=== PATIENT | female | born 1960 | race Caucasian/White ===

== ENCOUNTER → 2020-03-31 | Outpatient (CLI) | payer OTHER | LOC: LAB 13:31 | PROVIDERS: ATTEND Internal Medicine Gastroenterology | DX: Z01.812 Encounter for preprocedural laboratory examination (principal); K21.9 Gastro-esophageal reflux disease without esophagitis; Z20.828 Contact with and (suspected) exposure to other viral communicable diseases | CPT/HCPCS: U0003 ==

== ENCOUNTER → 2020-04-03 | Day surgery (SDC) | payer OTHER ==
[~2020-04-03] MED LIST: IV RINGERS,LACTATED 1000ML 1,000 ML IV SCH; PROPOFOL 10 MG/ML (20ML) VIAL. IV ONE
[2020-04-03 10:54] VITALS: BP 129/72
--- NOTE | 2020-04-03 11:46 | PREOP HP ---
DATE OF SERVICE: 04/03/2020 DATE OF PROCEDURE: 04/04/2020 REQUESTING PHYSICIAN: Reji Baorne DO PRIMARY CARE PHYSICIAN: Reji Barone DO REASON FOR PROCEDURE: Reflux and family history of colon cancer. HISTORY OF PRESENT ILLNESS: This is a 60-year-old female who presents for upper endoscopy and colonoscopy. She has a history of reflux and a family history of colon cancer. ALLERGIES: No known drug allergies. PAST MEDICAL HISTORY: Constipation. FAMILY MEDICAL HISTORY: Significant for stomach cancer and colon polyps. MEDICATIONS: MAR reviewed. PAST SURGICAL HISTORY: Cholecystectomy and tubal ligation. REVIEW OF SYSTEMS: A 13-point review of systems was done. It is positive as per HPI, otherwise negative. PHYSICAL EXAMINATION: VITAL SIGNS: She is afebrile and her vital signs are stable. GENERAL: She is a well-developed, well-nourished an obese female, in no apparent distress. HEENT: Her oropharynx is clear. CARDIOVASCULAR: S1, S2. LUNGS: Clear. ABDOMEN: Normoactive bowel sounds, soft, nontender, nondistended. EXTREMITIES: No edema. NEUROLOGIC: Awake, alert and oriented x 3. ASSESSMENT AND PLAN: 1. Colorectal cancer screening. 2. Family history of colon cancer. 3. Reflux. Thank you for allowing me to participate in the care of this patient. JAVIER BAKER MD DR: KOLE/jaquelin JOB#: [id number] / [id number]
--- NOTE | 2020-04-08 08:10 | PATHOLOGY ---
[facility] Accession Number: [id number] . 01 Material submitted: . PART A: small bowel - SMALL BOWEL BIOPSY PART B: stomach - GASTRIC ANTRUM/BODY BIOPSY. Modifiers: body PART C: esophagus - DISTAL ESOPHAGUS BIOPSY. Modifiers: distal PART D: colon - TRANSVERSE COLON POLYP BIOPSY. Modifiers: transverse PART E: colon - SIGMOID POLYP BIOPSY. Modifiers: sigmoid . 01 Clinical history: . GERD, IBS, FAMILY HX COLON CA . 02 Diagnosis: A. Small bowel, endoscopic biopsy: - Duodenal mucosa without significant pathologic alteration. . B. 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 - Negative for intestinal metaplasia, dysplasia and malignancy. - Negative for Helicobacter pylori. . C. Esophagus, distal, endoscopic biopsy: - Esophageal squamous and gastric cardia mucosa with features of chronic esophagitis. - Negative for intestinal metaplasia, dysplasia and malignancy. . D. Large bowel, "transverse colon polyp", endoscopic biopsy: - Tubular adenoma; negative for high grade dysplasia and malignancy. . E. Large bowel, "sigmoid polyp", endoscopic biopsy: - Hyperplastic polyp; negative for dysplasia and malignancy. . (MLK:mml; 04/07/2020) [facility] 04/08/2020 0804 Local . 02 Electronically signed: . Vanesa Quinonez MD, Pathologist NPI- [id number] . 01 Gross description: . A. The specimen is received in formalin, labeled "Ari Altman, small bowel biopsy". Received are three segments of pale peter soft tissue ranging in size from 0.3 to 0.6 cm in maximum dimensions. The specimen is submitted entirely in cassette A1. . B. The specimen is received in formalin, labeled "Ari Altman, gastric antrum and body biopsy". Received are four segments of pale peter soft tissue ranging in size from 0.2 to 0.5 cm in maximum dimensions. The specimen is submitted entirely in cassette B1. . C. The specimen is received in formalin, labeled "Ari Altman, distal esophagus biopsy". Received are two segments of pale peter soft tissue ranging in size from 0.3 to 0.4 cm in maximum dimensions. The specimen is submitted entirely in cassette C1. . D. The specimen is received in formalin, labeled "Ari Altman, transverse colon polyp biopsy". Received is a segment of pale peter soft tissue measuring 0.3 cm in maximum dimensions. The specimen is submitted entirely in cassette D1. . E. The specimen is received in formalin, labeled "Ari Altman, sigmoid polyp biopsy". Received are two segments of pale peter soft tissue ranging in size from 0.3 to 0.4 cm in maximum dimensions. The specimen is submitted entirely in cassette E1. (CAA; 04/04/2020) QAC/QAC 04/04/2020 1201 Local . 02 Microscopic: . Immunohistochemical stain results (properly-controlled): Helicobacter pylori (block B1): Negative for organisms . (MLK:mml; 04/07/2020) . 02 Pathologist provided ICD-10: D12.3, K63.5, K21.9, Z80.0 . 02 CPT . 022014, 379148, 619031, 261626, 339347, [id number] Specimen Comment: A courtesy copy of this report has been sent to [phone], [phone] Specimen Comment: [id number] Specimen Comment: Report sent to / Performed at: 01 [facility] [address], [place], [place] [id number] MD Lucho Hernandez MD Phone: [phone] Performed at: 02 [facility] [address] [place], [place] [id number] MD Michael Wilcox MD Phone: [phone]
== END ==
LOC: SURG 08:56 → EDUNIT# 10:00
PROVIDERS: ATTEND Internal Medicine Gastroenterology
DX: Z12.11 Encounter for screening for malignant neoplasm of colon (principal); K57.30 Diverticulosis of large intestine without perforation or abscess without bleeding; K64.0 First degree hemorrhoids; D12.3 Benign neoplasm of transverse colon; K21.9 Gastro-esophageal reflux disease without esophagitis; Z86.010 Personal history of colon polyps; Z90.49 Acquired absence of other specified parts of digestive tract; Z98.890 Other specified postprocedural states; Z79.899 Other long term (current) drug therapy; Z80.0 Family history of malignant neoplasm of digestive organs
CPT/HCPCS: 43239; 45380; 88305; 88342; J2704